=== PATIENT | male | born 1960 | race Caucasian/White ===

== ENCOUNTER 2023-08-02 12:06 | Outpatient (CLI) | payer OTHER, SELFPAY ==
--- NOTE | 2023-08-02 12:18 | CT_ITS ---
WS: [id number] LDCT LUNG CANCER SCREENING TECHNIQUE: Noncontrast CT of the chest with coronal and sagittal reformatted images. CLINICAL INFORMATION: HX OF TOBACCO USE COMPARISON: None. DLP: 273.10 mGy.cm DIvol: Mean CTDIvol: 7.40 (mGy) All CT scans at [facility] use at least one of these dose optimization techniques: automat ed exposure control; mA and/or kV adjustment per patient size (includes targeted exams where dose is matched to clinical indication); or iterative reconstruction. FINDINGS: Lungs are well aerated. No acute pulmonary infiltrates. No suspicious pulmonary parenchymal opacities. Normal caliber thoracic aorta. Arch calcification. No mediastinal or hilar lymphadenopathy. No axilla ry lymphadenopathy. Small LEFT adrenal adenoma measuring 14 mm. IMPRESSION: CT/CT lung screening [id number] LUNG-RADS: 1-Negative FOLLOW UP: 12 Month: Continue annual screening with LDCT
== END 2023-08-02 12:07 | disposition home or self-care (01) ==
PROVIDERS: Visit Provider Family Medicine
DX: Z12.2 Encounter for screening for malignant neoplasm of respiratory organs (principal); Z87.891 Personal history of nicotine dependence
CPT/HCPCS: 71271

== ENCOUNTER 2024-01-10 18:44 | Emergency (ER) | payer BC, SELFPAY ==
[2024-01-10 18:49] VITALS: BP 165/81; PULSE 71; RESP 18; TEMP 36.8; O2SAT 94
--- NOTE | 2024-01-10 19:55 | ED_ITS ---
HPI - Recheck/Abnormal Lab/Rx 2 General: Chief Complaint: Recheck/Abnormal Lab/Rx Stated Complaint: hydroseal leaking suddenly Time Seen by Provider: 01/10/24 19:54 History of Present Illness: 63-year-old male patient comes in with a history of a hydrocele drain to his right testicle done within the last month by Dr. Polk in [place]. Patient reports that he had to return about a week after the initial drainage to have a drain put in due to increased swelling. Patient had been drain removed about 1 week ago and tonight noticed increased drainage from the wound site which prompted him to come to the ER. Patient has no history of diabetes. Patient reports minimal to no pain. Patient reports no fever or chills. Patient appears nontoxic. Review of Systems 2 General: Reports: 10 or more systems reviewed and unremarkable except in HPI and below Physical Exam 2 Const: COMMON NORMALS: alert HENMT: COMMON NORMALS: normocephalic HEAD & SCALP: normocephalic Neck/C-Spine: COMMON NORMALS: full ROM Resp: COMMON NORMALS: normal respiratory effort and clear to auscultation bilaterally AUSCULTATION: clear to auscultation bilaterally Cardio: COMMON NORMALS: regular rate RATE: regular rate GI: COMMON NORMALS: non-tender : OTHER: Scrotal redness and induration with edema. White exudate to a wound to the right scrotal sac. No palpable fluctuance. Mild tenderness to touch. Extremity: COMMON NORMALS: normal to inspection Neuro: SENSORIUM/ORIENTATION: Yes alert Skin: COMMON NORMALS: turgor normal GENERAL SKIN EXAM: turgor normal Course 2 Vital Signs: Vital signs: Vital Signs Temperature 98.3 F 01/10/24 18:49 Pulse Rate 73 01/10/24 20:39 Respiratory Rate 16 01/10/24 20:39 Blood Pressure 165/81 01/10/24 20:39 Pulse Oximetry 96 01/10/24 20:39 Oxygen Delivery Me thod Room Air 01/10/24 20:39 [facility] - Recheck/Abnormal Lab/Rx Medical Decision Making 63-year-old male patient comes in today with drainage from his scrotal sac from a hydrocele aspiration. Patient reported some purulent drainage. Exam notes induration and redness to the scrotal sac with some drainage from a open wound. Differential diagnosis includes cellulitis, abscess, necrotizing fasciitis. Patient appears nontoxic. Patient appears in no pain. Strong suspicion for abscess and cellulitis. Ultrasound noted a 6 x 1 x 1 cm fluid collection that may be suggestive of seroma versus hematoma versus abscess. CBC and CMP were normal. Patient has appointment to follow-up with the surgeon on Monday. Patient is going to reach out to him in the morning. Patient will return to ER for worsening symptoms. Lab Data 01/10/24 21:02 01/10/24 21: Radiology Impressions Scrotum Ultrasound 01/10/24 20:26 IMPRESSION: 1. 6.4 x 1.7 x 1.7 cm apparent complex fluid collection within the right scrotum, anterior to the testicle. See additional details/discussion above. 2. No evidence for torsion by Doppler ultrasound. 3. No findings to suggest epididymitis. 4. Small amount of left scrotal fluid. 5. Other details/findings discussed above. Laboratory Results WBC 8.52 10^3/uL (3.29-11.43) 01/10/24 21: RBC 4.77 10^6/uL (3.85-5.65) 01/10/24 21: Hgb 13.70 g/dL (11.27-16.99) 01/10/24 21: Hct 42.0 % (37-53) 01/10/24 21: MCV 88.1 fl (82-101) 01/10/24 21: MCH 28.7 pg (27-33) 01/10/24 21: MCHC 32.6 g/dL (30-55) 01/10/24 21: RDW 13.1 % (12.1-15.1) 01/10/24 21: Plt Count 302 10^3/cmm (157-399) 01/10/24 21: MPV 9.7 fL (7.4-10.4) 01/10/24 21: Neut % (Auto) 68.3 % 01/10/24 21: Lymph % (Auto) 16.7 % 01/10/24 21: [place] % (Auto) 10.4 % 01/10/24 21: Eos % (Auto) 3.4 % 01/10/24 21: Baso % (Auto) 0.7 % 01/10/24 21:02 Neut # (Auto) 5.82 10^3/uL (1.8-7.7) 01/10/24 21:02 Lymph # (Auto) 1.4 10^3/uL (0.8-4.8) 01/10/24 21:02 [place] # (Auto) 0.9 10^3/uL (0.2-0.9) 01/10/24 21:02 Eos # (Auto) 0.3 10^3/uL (0.0-0.8) 01/10/24 21:02 Baso # (Auto) 0.1 10^3/uL (0.0-0.1) 01/10/24 21:02 Nucleated RBC % (auto) 0 % 01/10/24 21:02 Nucleated RBCs # 0.0 /100WBC 01/10/24 21:02 Sodium 141 mmol/L (136-145) 01/10/24 21:02 Potassium 4.2 mmol/L (3.5-5.1) 01/10/24 21:02 Chloride 104 mmol/L (98-107) 01/10/24 21:02 Carbon Dioxide 25 mmol/L (22-29) 01/10/24 21:02 Anion Gap 16.2 (5-19) 01/10/24 21:02 BUN 16 mg/dL (8-23) 01/10/24 21:02 Creatinine 0.8 mg/dL (0.7-1.2) 01/10/24 21:02 GFR Calculation 97.0 mL/min (90-130) 01/10/24 21:02 Glucose 114 mg/dL (65-115) 01/10/24 21:02 Calculated Osmolality 294 mOsm/kg (285-295) 01/10/24 21:02 Calcium 8.7 mg/dL (8.5-10.5) 01/10/24 21:02 Total Bilirubin 0.2 mg/dL (0.15-1.2) 01/10/24 21:02 AST 26 U/L (0-40) 01/10/24 21:02 ALT 30 U/L (0-41) 01/10/24 21:02 Alkaline Phosphatase 69 U/L (40-130) 01/10/24 21:02 C-Reactive Protein 9.8 mg/L (0.0-4.9) H 01/10/24 21:02 Total Protein 6.9 g/dL (6.6-8.7) 01/10/24 21:02 Albumin 3.6 g/dL (3.5-5.2) 01/10/24 21:02 Globulin 3.3 g/dL (1.3-4.6) 01/10/24 21:02 All radiology interpretation(s) finalized by discharge Discharge Plan Discharge Patient Disposition: Home Clinical Impression: Abscess of scrotum Condition: Stable Prescriptions: New Bactrim DS 800-160 mg tablet 1 tab PO BID Qty: 14 0RF amoxicillin-pot clavulanate 875-125 mg tablet 1 tab PO BID Qty: 14 0RF No Action amoxicillin 875 mg tablet 875 mg PO BID 10 Days Qty: 20 0RF Discharge Orders: Discharge ED (Routine); Ordered 01/10/24 Ordered By: Emory Milan Referrals: Norman Singh MD [Primary Care Provider] - Discharge Diet: Usual diet Discharge Activity: Increase activity as tolerated Patient Instructions: Abscess (ED) Activity Restrictions/Additional Instructions: Follow-up with surgeon as scheduled appointment on Monday. Return to ER for high fever greater than 100.4, increasing redness and pain, or new concerns. Coding Level of Care Code ED Meat Blender for Lorelei Jackson
--- NOTE | 2024-01-10 20:26 | USR_ITS ---
PROCEDURE INFORMATION: Exam: US Scrotum and US Duplex Artery and Vein, Scrotum, Complete Exam date and time: 01/10/2024 9:24 PM Age: 63 years old Clinical indication: Swelling, testicles or scrotum; Prior surgery; Surgery date: 1-6 months; Surgery type: Patient had right scrotal hydrocele drainage sep 2023 (300ml). By end November 2023, it was drained a second time (500ml) and the second time a drain was installed. Now patient complaining of right scrotal swelling. ; Additional info: Abscess/seroma TECHNIQUE: Imaging protocol: Real-time ultrasound of the scrotum. Real-time duplex ultrasound scan of the arterial and venous flow of the scrotum with B-mode, color Doppler flow and spectral waveform analysis. Complete exam. Duplex exam was performed to evaluate for torsion and other vascular conditions. COMPARISON: No relevant prior studies available. FINDINGS: Right: The right testicle measures 45 x 31 x 38 mm, estimated volume 27.2 cc. No visible intratesticular mass. Duplex Doppler evaluation, with color flow and spectral waveform analysis, demonstrates intratesticular arterial and venous blood flow. The right epididymis is normal in size and appearance. There is an apparent complex fluid collection within the right scrotum, anterior to the testicle. The fluid collection measures 6.4 x 1.7 x 1 7 cm. The fluid is complex in appearance with numerous internal echoes and apparent septations. The appearance is nonspecific, possibilities would include hematoma, seroma, and abscess. Given the complex appearance, a non-complicated seroma is probably less likely. Please correlate clinically. There is prominent right scrotal wall/skin thickening. Left: The left testicle measures 57 x 28 x 31 mm, estimated volume 26.0 cc. No visible intratesticular mass. Duplex Doppler evaluation, with color flow and spectral waveform analysis, demonstrates intratesticular arterial and venous blood flow. 8 x 4 mm cyst in the head of the left epididymis. The left epididymis is otherwise unremarkable in size and appearance. There is small amount of left scrotal fluid. US/US scrotum [id number] IMPRESSION: 1. 6.4 x 1.7 x 1.7 cm apparent complex fluid collection within the right scrotum, anterior to the testicle. See additional details/discussion above. 2. No evidence for torsion by Doppler ultrasound. 3. No findings to suggest epididymitis. 4. Small amount of left scrotal fluid. 5. Other details/findings discussed above.
[2024-01-10 20:39] VITALS: BP 165/81; PULSE 73; RESP 16; O2SAT 96
[2024-01-10 21:13] LABS: Basophils # 0.1 10^3/uL (0.0-0.1); Basophils % 0.7 %; Eosinophils # 0.3 10^3/uL (0.0-0.8); Eosinophils % 3.4 %; Lymphocytes # 1.4 10^3/uL (0.8-4.8); Lymphocytes % 16.7 %; Mean Corpuscular HGB Conc 32.6 g/dL (30-55); Mean Corpuscular Hemoglobin 28.7 pg (27-33); Mean Corpuscular Volume 88.1 fl (82-101); Mean Platelet Volume 9.7 fL (7.4-10.4); Monocytes # 0.9 10^3/uL (0.2-0.9); Monocytes % 10.4 %; Neutrophils # 5.82 10^3/uL (1.8-7.7); Neutrophils % 68.3 %; Nucleated Red Blood Cells % 0 %; Platelet Count 302 10^3/cmm (157-399); Red Blood Count 4.77 10^6/uL (3.85-5.65); Red Cell Distribution Width 13.1 % (12.1-15.1); White Blood Count 8.52 10^3/uL (3.29-11.43)
[2024-01-10 21:39] LABS: Alanine Aminotransferase 30 U/L (0-41); Albumin Level 3.6 g/dL (3.5-5.2); Alkaline Phosphatase 69 U/L (40-130); Anion Gap 16.2 (5-19); Aspartate Amino Transferase 26 U/L (0-40); Blood Urea Nitrogen 16 mg/dL (8-23); C Reactive Protein 9.8 mg/L (0.0-4.9); Calcium 8.7 mg/dL (8.5-10.5); Carbon Dioxide 25 mmol/L (22-29); Chloride 104 mmol/L (98-107); Creatinine Clr Calc Pharmacy 156.4547; Globulin 3.3 g/dL (1.3-4.6); Glucose 114 mg/dL (65-115); Osmolality Calculated 294 mOsm/kg (285-295); Potassium 4.2 mmol/L (3.5-5.1); Sodium 141 mmol/L (136-145); Total Bilirubin 0.2 mg/dL (0.15-1.2); Total Protein 6.9 g/dL (6.6-8.7)
[2024-01-10] MEDS: sulfamethoxazole-trimeth DS 160-800 mg Tablet 1 TAB PO (22:51)
[2024-01-10] MEDS: cefTRIAXone 1,000 MG in water for injection-sterile 2.1 ML 2.10000000000000009 MG IM (22:52)
[2024-01-10 23:07] VITALS: BP 165/81; PULSE 73; RESP 16; TEMP 36.8; O2SAT 96
== END 2024-01-10 23:07 | disposition home or self-care (01) ==
PROVIDERS: Emergency Provider Nurse Practitioner Family; PCP Family Medicine
DX: N49.2 Inflammatory disorders of scrotum (principal)
CPT/HCPCS: 36415; 76870; 80053; 85025; 86140; 96372; 99284; J0696

== ENCOUNTER 2024-08-13 09:55 | Outpatient (CLI) | payer BC, SELFPAY ==
--- NOTE | 2024-08-13 10:09 | USCV_ITS ---
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 Resting TBI of 1.2 on the right side and 1.4 on the left side CONCLUSIONS Normal resting ABIs and TBIs bilaterally No significant arterial obstruction, based on the above findings Dr Sabiha Mercado MD FAC (Electronically Signed) Final Date: 13 August 2024 22:38 S
== END 2024-08-13 09:56 | disposition home or self-care (01) ==
LOC: RAD 09:56
PROVIDERS: PCP Family Medicine; Visit Provider Family Medicine
DX: R60.0 Localized edema (principal)
CPT/HCPCS: 93922

== ENCOUNTER 2024-10-10 07:50 | Outpatient (CLI) | payer BC, SELFPAY ==
--- NOTE | 2024-10-10 07:53 | CT_ITS ---
WS: [id number] LDCT LUNG CANCER SCREENING HISTORY: NICOTINE DEPENDENCE,CIGARETTES TECHNIQUE: Axial imaging performed from the apices to 1 cm below the costophrenic angles. Coronal and sagittal reformats are submitted with axial MIP series. All CT scans at [facility] use at least one of these dose optimization techniques: automated exposure control; mA and/or kV adjustment per patient size (includes targeted exams where dose is matched to clinical indication); or iterativ e reconstruction. DLP: 292.99 mGy.cm DIvol: Mean CTDIvol: 7.60 (mGy) COMPARISON: 08/02/2023 Diagnostic quality: Satisfactory Lungs: Moderate pulmonary hyperexpansion. No pulmonary mass, nodule or pneumonia. No endobronchial le sions. Heart: Normal size heart with no pericardial effusion.. Other findings: Minimal atherosclerosis thoracic aorta. No adenopathy. Normal size pulmonary artery. Small hiatal hernia. Mild hepatic steatosis. Stable 14 mm LEFT adrenal nodule. CT/CT lung screening [id number] IMPRESSION: LUNG-RADS: 1-Negative FOLLOW UP: 12 Month: Continue annual screening with LDCT OTHER FINDINGS (S MODIFIER): None.
== END 2024-10-10 07:51 | disposition home or self-care (01) ==
LOC: RAD 07:51
PROVIDERS: PCP Family Medicine; Visit Provider Family Medicine
DX: Z12.2 Encounter for screening for malignant neoplasm of respiratory organs (principal); F17.210 Nicotine dependence, cigarettes, uncomplicated; J98.4 Other disorders of lung; K44.9 Diaphragmatic hernia without obstruction or gangrene; D35.02 Benign neoplasm of left adrenal gland
CPT/HCPCS: 71271

== ENCOUNTER 2025-05-22 15:55 | Outpatient (CLI) | payer MEDICARE, SELFPAY ==
--- NOTE | 2025-05-22 16:00 | US_ITS ---
WS: [id number] ULTRASOUND SOFT TISSUES RIGHT face HISTORY: Lipoma COMPARISON: None available. TECHNIQUE: 2-D and color Doppler imaging is submitted. Ultrasound is performed over the RIGHT face at the level of the mandible. Ovoid mass nearly isoechoic to the adjacent soft tissues and muscles measures 2.3 x 3.8 x 0.7 cm. No increased vascularity. This is most consistent with a lipoma. No adenopathy. US/US soft tissue head neck [id number] IMPRESSION: Palpable mass along the RIGHT face is most consistent with a lipoma.
== END 2025-05-22 15:56 | disposition home or self-care (01) ==
LOC: RAD 15:57
PROVIDERS: PCP Family Medicine; Visit Provider Surgery
DX: D17.0 Benign lipomatous neoplasm of skin and subcutaneous tissue of head, face and neck (principal)
CPT/HCPCS: 76536